=== PATIENT | male | born 1960 | race Caucasian/White ===

== ENCOUNTER → 2020-08-31 | Outpatient (CLI) | payer BC, OTHER ==
[~2020-08-31] MED LIST: ALDACTONE25 MG PO; ATENOLOL 100MG100 M2; COUMADIN 2.5MG2.5 M1 PO; IBUPROFEN; IBUPROFEN 800800 M1 PO; IBUPROFEN200 M2 PO; LASIX 40 MG TAB40 M2 PO; LISINOPRIL5 MG PO; LORTAB 5-500 T1 EAC1 PO; LOVENOX SC; MINIPRIN81 MG PO; MULTIVITAMINS PO; PACERONE 200 M200 M1 PO; POTASSIUM20 PO; RELAFEN500 MG; RELAFEN500 MG PO; SOMINEX PO; TENORMIN50 MG; TOPROL XL25 MG PO; TRAMADOL 50 MG50 MG PO; XARELTO15 MG PO
== END ==
LOC: SJCVCIMAG 08-30 07:34
PROVIDERS: ATTEND Internal Medicine
DX: I11.9 Hypertensive heart disease without heart failure (principal); I48.91 Unspecified atrial fibrillation; I42.9 Cardiomyopathy, unspecified

== ENCOUNTER → 2020-09-21 | Outpatient (CLI) | payer OTHER | LOC: RAD 16:22 | PROVIDERS: ATTEND Internal Medicine Cardiovascular Disease | DX: Z13.6 Encounter for screening for cardiovascular disorders (principal); E78.00 Pure hypercholesterolemia, unspecified; I25.10 Atherosclerotic heart disease of native coronary artery without angina pectoris ==